=== PATIENT | male | born 1945 | race Caucasian/White ===

== ENCOUNTER 2016-11-07 14:58 | Emergency (ER) | payer OTHER ==
--- NOTE | 2016-11-07 19:35 | ED ORDER SUMMARY ---
..... Patient: DEEPAK CAMPA OrderSheet [facility] VisitID: [id number] [place] [address] 71y, M Registration Date/Time: 11/07/2016 ORDER SHEET Weight: 92.9 kg (stated) Allergies: None GENERAL ORDERS: UA-Culture if indicated Urgent (15:27 11/07/2016 PHutchinson DO) (Ack 15:28 LTapper) (17:13 MWinterer R.N.) Amylase Urgent (15:27 11/07/2016 PHutchinson DO) (15:28 DMaziarka R.N.) (Ack 15:28 LTapper) Lipase Urgent (15:11/07/2016 PHutchinson DO) (15:28 DMaziarka R.N.) (Ack 15:28 LTapper) Cardiac Panel Stat (15:11/07/2016 PHutchinson DO) (15:28 DMaziarka R.N.) (Ack 15:28 LTapper) PT with INR Urgent (15:27 11/07/2016 PHutchinson DO) (15:28 DMaziarka R.N.) (Ack 15:28 LTapper) BNP Urgent (15:11/07/2016 PHutchinson DO) (15:28 DMaziarka R.N.) (Ack 15:28 LTapper) Stool for C. Difficile Urgent (15:11/07/2016 PHutchinson DO) (Ack 15:28 LTapper) (Cancelled: Patient Off Unit, patient unable to provide sample 21:27 HSoule) NPO (15:27 11/07/2016 PHutchinson DO) (15:28 DMaziarka R.N.) Rapid Influenza Screen (Nasal Pharyngeal) (REDUCTION FURNACE OPERATOR HELPER swab) Urgent (15:11/07/2016 PHutchinson DO) (Ack 15:28 LTapper) (15:43 MWinterer R.N.) Ammonia Level Urgent (15:33 11/07/2016 PHutchinson DO) (15:43 MWinterer R.N.) US Abdomen Limited (No) (painless jaundice and nausea) Urgent (15:37 11/07/2016 [facility]) (Ack 15:52 LTapper) (18:11 MWinterer R.N.) EKG - ER Stat (15:53 11/07/2016 [facility]) (Ack 16:00 MWinterer R.N.) (17:08 MWinterer R.N.) Hepatitis Evaluation VII Urgent (16:26 11/07/2016 [facility]) (Ack 16:29 LTapper) (19:06 LTapper) CT Abd/Pel wo Cont (painless jaundice; elevated LFT - had US with dilated ducts; head of pancreas not clearly seen - ) Urgent (18:59 11/07/2016 [facility]) (Ack 19:07 LTapper) (19:17 Michael) Call (Place call to): (GI at [facility]) (19:00 11/07/2016 [facility]) (19:19 MWinterer R.N.) MEDICATION ORDERS: IV FLUIDS: IV NS : initial bolus 500 mL (1000 mL/hr), then 250 mL/hr for X2 (NOW) (15:27 11/07/2016 [facility]) (Ack 15:29 MWinterer R.N.) (15:38 MWinterer R.N.) Zofran IV 4 mg (NOW) (15:27 11/07/2016 [facility]) (Ack 15:29 MWinterer R.N.) (15:39 MWinterer R.N.) ORDER SHEET NOTES: [Electronically signed by Miriam Moreno (21:27 11/07/2016)] [Electronically signed by Cristobal Beauchamp DO (09:14 11/08/2016)] [Electronically locked/signed by Miriam Moreno (21:11/07/2016)]
--- NOTE | 2016-11-07 19:35 | ED CLINICAL REPORT ---
Clinical Report - Physicians/Mid Levels [facility] [address] [place] [address] 11/07/2016 15:00 Patient: DEEPAK LANIER [facility]#: [id number] Time Seen: 15:26. Arrived- By private vehicle. Historian- patient. HISTORY OF PRESENT ILLNESS Chief Complaint: NASAL CONGESTION, NAUSEA and WEAKNESS JAUNDICE. This started today and is still present. It was gradual in onset and has been waxing/waning. At its maximum, severity described as moderate. When seen in the E.D., severity described as moderate. Modifying factors- worsened by walking. Relieved by rest. The patient has had associated mild loss of appetite. No headache, visual disturbance or muscle aches. He has had fatigue. Denies sleep problem. No decreased urine output. Similar symptoms previously: None. Recent medical care: Not recently seen/assessed. REVIEW OF SYSTEMS No fever, sore throat, difficulty breathing, chest pain or abdominal pain. No vomiting, black stools, bloody stools, chills or difficulty with urination. No back pain, calf pain, headache or blackouts. The patient has had sinus drainage, nasal congestion and mild nausea. He has had a mild nonproductive cough. He has had mild loose stools. He has had mild difficulty with ambulation. It has been associated with weakness in both legs. He has had urinary problems (dark appearing urine). All systems otherwise negative, except as recorded above. PAST HISTORY Hypertension. Type II diabetes mellitus (recently). Hyperlipidemia. Constipation. Surgeries: Tonsillectomy. SOCIAL HISTORY Former smoker, end date 1981. Alcohol use. (no alcohol for 35 years). No drug use. ADDITIONAL NOTES The nursing notes have been reviewed. PHYSICAL EXAM Vital Signs: 11/07/2016 15:11 BP: 175/66. HR: 45. RR: 12. O2 saturation: 100%. Temp: 97.9 F. Pain level now: 0/10. Appearance: Alert. No acute distress. Eyes: Scleral icterus. No pale conjunctivae. ENT: Pharynx normal. No pharyngeal erythema or tonsillar exudate. The mucous membranes are not dry. Neck: Normal inspection. CVS: Bradycardia. Heart sounds normal. Pulses normal. Respiratory: No respiratory distress. Breath sounds normal. Abdomen: No visible injury. Soft and nontender. Back: Normal inspection. Skin: No cyanosis. Skin warm and dry. No petechiae. Normal skin turgor. Jaundiced. No pallor or diaphoresis. Extremities: Extremities exhibit normal ROM. No lower extremity edema. Neuro: Oriented X 3. No motor deficit. No sensory deficit. LABS, X-RAYS, AND EKG EKG: EKG time: (16:12). Narrow-complex bradycardia (ventricular rate 45). Sinus bradycardia. Normal P waves. Normal FROY. Normal QRS complex. Normal axis. Non-specific ST segment / T wave abnormalities. Non-specific T wave flattening in lead II, V5 and V6. Non-specific T wave inversion in lead III, V1, V2, V3 and V4. The study has been interpreted contemporaneously by me. The EKG appears to be a good tracing. Abdominal Sonogram: (Intrahepatic ductal dilation CBD dilated at 10 mm sludge within gallbladder No wall thickening Liver heterogenous Pancreas not well visualized). The study was independently viewed by me. The study was discussed with the radiologist (via tech). Laboratory Tests: UA-Culture if indicated: (JANUSZ: 11/07/2016 17:10) ( MsgRcvd 11/07/2016 17:32) Final results Test Result Flag Units (Reference) URINE COLOR DARK YELLOW URINE APPEARANCE CLEAR URINE GLUCOSE 1+ (NEGATIVE) URINE BILIRUBIN POSITIVE (NEGATIVE) URINE BILIRUBIN ICTOTEST POSITIVE (NEGATIVE) URINE KETONE NEGATIVE (NEGATIVE) URINE SPECIFIC GRAVITY >= 1.030 (1.010-1.030) URINE PH 5.5 (5.0-8.0) URINE PROTEIN TRACE (NEGATIVE) URINE UROBILINOGEN 1.0 EU/dL (0.2-1.0) URINE NITRITE POSITIVE (NEGATIVE) URINE BLOOD NEGATIVE (NEGATIVE) URINE LEUK ESTERASE NEGATIVE (NEGATIVE) URINE RBC NONE SEEN rbc/hpf (0-1) URINE WBC 0-1 wbc/hpf (0-1) URINE EPITHELIAL CELLS 0-1 EPI/hpf (0-5) URINE BACTERIA NONE SEEN (NONE SEEN) URINE COMMENT CULTURE INDICATED 1+ AMORPHOUS2+ MUCUSURINE CULTURES ARE SET-UP BASED ON THE FOLLOWING CRITERIA:POSITIVE NITRITEPOSITIVE LEUKOCYTE ESTERASEGREATER THAN 10 WHITE BLOOD CELLSMODERATE (2+) OR GREATER BACTERIA CBC w Diff: (JANUSZ: 11/07/2016 15:15) ( [facility] 11/07/2016 15:41) Final results Test Result Flag Units (Reference) WHITE BLOOD COUNT 7.1 K/uL (4.5-11.5) RED BLOOD COUNT 4.60 M/uL (4.50-5.90) HEMOGLOBIN 13.6 gm/dL (13.5-17.5) HEMATOCRIT 40.4 L % (41.0-53.0) MEAN CELL VOLUME 88 fL (80-100) MEAN CORPUSCULAR HGB 30 pg (26-34) MEAN CORPUSCULAR HGB CONC 34 g/dL (31-37) RED CELL DISTRIBUTION WIDTH 16.3 H % (11.6-14.8) PLATELET COUNT 357 K/uL (150-400) NEUTROPHIL % 69.0 % (50-75) LYMPH % 20.7 L % (25-40) MONO % 9.0 % (3-14) EOSINOPHIL % 1.2 % (0-4) BASOPHIL % 0.1 % (0-2) PT with INR: (JANUSZ: 11/07/2016 15:15) ( [facility] 11/07/2016 15:44) Final results Test Result Flag Units (Reference) INR 1.0 (0.8-1.2) Low Intensity Therapy: INR 1.5-2.0 PT range 18.5-23.1Mod.Intensity Therapy: INR 2.0-3.0 PT range 23.1-31.5High Intensity Therapy: INR 2.5-3.5 PT range 27.4-35.5High Intensity Therapy 2: INR 3.0-4.0 PT range 31.5-39.3 Ammonia Level: (JANUSZ: 11/07/2016 15:45) ( [facility] 11/07/2016 16:11) Final results Test Result Flag Units (Reference) AMMONIA 13 umol/L (11-32) BNP: (JANUSZ: 11/07/2016 15:15) ( MsgRcvd 11/07/2016 16:02) Final results Test Result Flag Units (Reference) B-TYPE NATRIURETIC PEPTIDE 210 H pg/ml (5-100) CHEM 13 PANEL: (JANUSZ: 11/07/2016 15:15) ( MsgRcvd 11/07/2016 16:00) Final results Test Result Flag Units (Reference) GLUCOSE 178 H mg/dL (70-110) BUN 19 H mg/dL (7-18) CREATININE 1.3 mg/dL (0.6-1.3) Estimated GFR 57.51 mL/min Estimated GFR- >60 mL/min Note: Persistent reduction over 3 months in eGFR<60 mL/min/1.73 m2 defines CKD. Patients with eGFR values>=60 mL/min/1.73 m2 may also have CKD if evidence ofpersistent proteinuria. Additional information may be foundat www.kidney.org. SODIUM 142 mmol/L (136-145) POTASSIUM 3.5 mmol/L (3.5-5.1) CHLORIDE 102 mmol/L (98-107) CARBON DIOXIDE 27 mmol/L (21-32) CALCIUM 9.2 mg/dL (8.5-10.1) TOTAL PROTEIN 7.7 g/dL (6.4-8.2) ALBUMIN 3.2 L g/dL (3.3-5.0) BILIRUBIN, TOTAL 7.3 H mg/dL (0.0-1.0) ALKALINE PHOSPHATASE 747 H U/L (46-116) AST (SGOT) 113 H U/L (15-37) ALT (SGPT) 153 H U/L (12-78) MAGNESIUM 2.1 mg/dL (1.8-2.4) LIPASE 167 U/L (73-393) AMYLASE 28 U/L (25-115) CPK 56 U/L (24-260) TROPONIN I 0.11 ng/mL (0.00-1.5) TROPONIN REFERENCE RANGE:<0.1 NEGATIVE0.1-1.5 INDETERMINANT>1.5 POSITIVE Culture, Urine: (JANUSZ: 11/07/2016 17:10) ( MsgRcvd 11/08/2016 08:19) IP Test Result Flag Units (Reference) CULTURE, URINE DATE: 11/08/16 NO GROWTH AT:: NO GROWTH AT 1 DAY PRELIM REPORT: PRELIMINARY REPORT #1 Rapid Influenza Screen: (JANUSZ: 11/07/2016 15:40) ( MsgRcvd 11/07/2016 16:01) Final results SPECIMEN DESCRIPTION: GLOBAL ENGINEERING MANAGER SWAB Test Result Flag Units (Reference) RAPID INFLUENZA SCREEN DATE: 11/07/16 INFLUENZA A: NEGATIVE SCREEN FOR INFLUENZA A INFLUENZA B: NEGATIVE SCREEN FOR INFLUENZA B RAPID INFLUENZA NEGATIVE FOR "A" "B". . Pulse Oximetry: 11/07/2016 15:11 O2 saturation: 100%. (FIO2 - room air). Interpretation: normal. PROGRESS AND PROCEDURES Course of Care: Normal Saline 1 liter IVPB given. Zofran 4 mg IVP given. Patient is stable. Physical exam findings are improved. Symptoms better. Mr Lanier presents with painless jaundice and moderate transaminase elevation with t.bili >7 and elevated alk phos. He has apparent gallbladder sludge, but no stones or wall thickening or other signs of cholecystitis (including neg Tiffanie's and no pain or tenderness). US with CBD dilated, but no CBD stone is seen. CBD on CT is normal. There are no signs of pancreatic head mass now. Hepatitis oanek is pending (send out test). Pt with chronic creatinine elevation - evaluated by nephroligy - trop I very slightly into the indeterminate range - likely due to mild renal disease. I have arranged close out pt GI follow up and he has a scheduled PCP f/u on Wednesday. He will return to the ED any time for new or worsening symptoms or any concerns. Discussed case with on-call health care provider, (Titi). Reviewed test results. Agreed upon treatment plan. Refers case to other health care provider. Discussed case with health care provider (Kathrine Patel [facility] GI - someone at the [facility] GI office will call pt with appointment time). Reviewed test results. Agreed upon treatment plan. Health care provider will see patient in office. Patient/family counseled. Old ED records reviewed. Disposition: Discharged. Condition: stable and improved. CLINICAL IMPRESSION Acute hepatitis (with painless jaundice). Abnormal liver function test: AST/SGOT, ALT/SGPT, alkaline phosphatase and total bilirubin. INSTRUCTIONS Drink plenty of fluids. Other diet: No acetaminophen / Tylenol containing medications. Warnings: Further evaluation is necessary in order to recheck abnormal lab, obtain test results, conduct further tests and assess the possibility of serious illness. It is very important to follow up with a physician. GENERAL WARNINGS: Return or contact your physician immediately if your condition worsens or changes unexpectedly, if not improving as expected, or if other problems arise. Your Current Medications: STOP TAKING THE FOLLOWING MEDICATIONS: Atenolol Oral : 50 mg. CONTINUE TAKING THE FOLLOWING MEDICATIONS: DULoxetine HCl Oral. Felodipine Oral : 10 mg. Fenofibrate Oral : 160 mg. Losartan Potassium Oral. MetFORMIN HCl Oral : 500 mg 2x a day. Simvastatin Oral : 20 mg. Prescription Medications: Zofran (orally disintegrating tablets) 4 mg: take 1 orally every 8 hours as needed for nausea and vomiting. Dispense ten (10). No refill. Substitution is permissible. Follow-up: Follow up with a aircraft dispatcher Someone at the GI clinic will call you with a time for an appointment - IF YOU DO NOT HEAR FROM THE CLINIC, PLEASE CALL [phone] Wednesday. Follow-up with: Sean Pink MD, [facility], , [address] [place] [address] , [place], [id number] Follow up Wednesday as scheduled. (Electronically signed by Cristobal Beauchamp DO 11/08/2016 9:14)
--- NOTE | 2016-11-07 19:35 | ED NURSING NOTES ---
Clinical Report - Nurses [place] [address] [place] [address] 11/07/2016 15:00 Patient: DEEPAK CAMPA TRIAGE Acuity: LEVEL 3. Chief Complaint: NAUSEA and DIARRHEA and (dark urine). Alert. No acute distress. --15:18 Marguerite Castañeda R.N. 15:11 11/07/16. BP: 175/66. HR: 45. RR: 12. O2 saturation: 100%. Temp: 97.9 F (oral). Pain level now: 0/10. --15:18 Marguerite Castañeda R.N. Weight: 92.9 kg stated. Height/Length: 68 inches Per Patient. BMI: 31.1. --15:13 Marguerite Castañeda R.N. Medications Atenolol Oral 50 mg. --15:16 Marguerite Castañeda R.N. Felodipine Oral 10 mg. Fenofibrate Oral 160 mg. Losartan Potassium Oral. MetFORMIN HCl Oral 500 mg, 2x a day. Simvastatin Oral 20 mg. --15:16 Marguerite Castañeda R.N. DULoxetine HCl Oral. --15:17 Marguerite Castañeda R.N. Medication/allergy information source: the patient. --15:18 Marguerite Castañeda R.N. Allergies None. --15:15 Marguerite Castañeda R.N. History Arrived by private vehicle. Historian: patient. Accompanied by spouse. Primary physician (Joesph). Onset. (1 months ago). SOCIAL HX: Smoker- current status unknown. No alcohol use or drug use. FALL RISK ASSESSMENT: Fall risk assessment completed. No fall risk identified. NUTRITIONAL RISK ASSESSMENT: The nutritional risk assessment revealed no deficiencies. FUNCTIONAL ASSESSMENT: Functional assessment: no impairments noted. LEARNING NEEDS ASSESSMENT: The learning needs assessment revealed no barriers. SKIN INTEGRITY ASSESSMENT: Skin integrity risk assessment completed. No skin integrity risk identified. --15:18 Marguerite Castañeda R.N. PROBLEMS: Constipation. Hypercholesterolemia. Diabetes Mellitus Type 2. Hypertension. --15:17 Marguerite Castañeda R.N. Assessment GENERAL / NEURO / PSYCH: Alert. Oriented X 4. Appears in no acute distress. [place] Coma Scale: 15- eyes open spontaneously (4); best verbal response- oriented x 4 (5); best motor response- obeys commands (6). Patient appears calm and cooperative. RESPIRATORY: Respirations not labored. CVS: Capillary refill less than 2 seconds. GI / : Abdomen soft and nontender. SKIN: Mucous membranes are pink. Skin is warm and dry. --15:18 Marguerite Castañeda R.N. Interventions ID band on patient. To treatment room. --15:18 Marguerite Castañeda R.N. PHYSICAL ASSESSMENT 15:19 11/07/16. Ambulatory to room. GENERAL / NEURO / PSYCH: Alert. Oriented X 4. Appears in no acute distress. HEENT: Mucous membranes are pink. RESPIRATORY: Respirations not labored. CVS: Capillary refill less than 2 seconds. GI / : Abdomen soft and nontender. SKIN: Skin is warm and dry. --15:19 Marguerite Castañeda R.N. NURSING PROGRESS NOTES 15:11/07/16. hospital monitor, pulse oximeter and NIBP monitor placed on patient; monitor alarms on. Patient gowned. Two patient identifiers checked. Call light placed in reach. Side rails up x 2. Bed placed in lowest position. Brakes of bed on. Patient ready for evaluation- chart flagged and ED physician notified. --15:21 Marguerite Castañeda R.N. 15:27 11/07/2016 Site #1 started via IV in the left wrist with an 18g angiocath; one attempt. Blood drawn: rainbow set. Labeled in the presence of the patient and sent to the lab. Saline lock flushed with 10 mL saline. --15:27 Valerie Díaz R.N. 15:38 11/07/2016 Started bag #1 1000 mL IV Fluids IV NS (Saline); at 999 mL/hr over 30 minute(s) via site #1 via IV pump. Allergies verified and confirmed 5 rights. IV patency established. IV site checked: no pain, redness, or swelling. IV flushed thoroughly pre- and post-medication administration. --15:38 Marguerite Castañeda R.N. 15:39 11/07/2016 Zofran (Ondansetron HCl) IVP 4 mg given over 1 minute(s) via site #1. Allergies verified and confirmed 5 rights. IV patency established. IV site checked: no pain, redness, or swelling. IV flushed thoroughly pre- and post-medication administration. IVP given by RN. --15:39 Marguerite Castañeda R.N. Checked patient name and birthdate: patient confirmed. Blood samples drawn with syringe and 23g butterfly by tech per protocol ; labeled in presence of the patient and sent to lab: regina camargo. --15:58 Donato Ruiz 16:15 11/07/2016 IV Fluids IV NS via IV site #1 Rate Changed: bag #1 decreased to 250 mL/hr via IV pump. IV patency established. IV site checked: no pain, redness, or swelling. IV flushed thoroughly. Confirmed 5 Rights. --16:20 Sri Marie R.N. EKG time: (16:12). EKG was performed by a tech and shown to the ED physician. --16:27 Larisa Manning 17:14 11/07/16. Checked patient name and birthdate: patient confirmed urine collected with return of brown-colored clear urine; sample sent to lab for urinalysis. Specimen labeled in the presence of the patient. --17:14 Marguerite Castañeda R.N. 17:24 11/07/16. BP: 134/63. HR: 48. RR: 15. O2 saturation: 95% on room air. Pain level now: 0/10. --17:25 Marguerite Castañeda R.N. 17:25 11/07/16. The patient reports no complaints, he is calm and resting quietly and he has had no adverse reaction. Overall patient status- he states feels the same. GI / : Denies abdominal pain or nausea. --17:25 Marguerite Castañeda R.N. EKG time: (16:12). EKG was performed by a tech and shown to the ED physician. --17:37 Larisa Manning 18:05 11/07/2016 IV Fluids IV NS Discontinued: bag #1 infused. Total amount infused: 1000 mL. IV patency established. IV site checked: no pain, redness, or swelling. IV flushed thoroughly. --18:10 Sri Marie R.N. 18:41 11/07/16. BP: 146/65. HR: 50. RR: 16. O2 saturation: 98% on room air. Pain level now: 0/10. --18:42 Marguerite Castañeda R.N. DISPOSITION / DISCHARGE 19:50 11/07/2016 Site #1 removed upon discharge. Catheter intact. Bandaid applied. --21:26 Miriam Moreno 19:59 11/07/16. Condition at departure: stable. --21:09 Miriam Moreno 19:59 11/07/16. BP: 126/75. HR: 53. RR: 15. O2 saturation: 99% on room air. Temp: 99.3 F (oral). Pain level now: 0/10. --21: Miriam Moreno 19:59 11/07/16. No learning barriers present. Discharge instructions provided and reviewed with the patient. Reviewed medication(s) side effects, precautions, dosing and course information. Prescription(s) given to the patient. Patient verbalized understanding. Written instructions provided in Luxembourgish. ( Follow up with GI on Wednesday. Contact information given. Patient has scheduled appointment with PCP on Wednesday and will follow up with him. Drink plenty of fluids. Return if symptoms worsen. Do not take Tylenol products.). The patient was discharged by the physician. He was discharged home and accompanied by spouse. He left the Emergency Department ambulatory and via private vehicle. Spouse driving. --21:26 Miriam Moreno 19:59 11/07/16. The goals identified in the patient's plan of care were met. FALL RISK ASSESSMENT: Fall risk assessment completed. No fall risk identified. --:26 Miriam Moreno. Locked/Released at 11/07/2016 21:27 by Miriam Moreno,
--- NOTE | 2016-11-07 19:35 | ED CLINICAL REPORT ---
Clinical Report - Physicians/Mid Levels [facility] [address] [place] [address] 11/07/2016 15:00 [id number] Time Seen: 15:26. Arrived- By private vehicle. Historian- patient. HISTORY OF PRESENT ILLNESS Chief Complaint: NASAL CONGESTION, NAUSEA and WEAKNESS JAUNDICE. This started today and is still present. It was gradual in onset and has been waxing/waning. At its maximum, severity described as moderate. When seen in the E.D., severity described as moderate. Modifying factors- worsened by walking. Relieved by rest. The patient has had associated mild loss of appetite. No headache, visual disturbance or muscle aches. He has had fatigue. Denies sleep problem. No decreased urine output. Similar symptoms previously: None. Recent medical care: Not recently seen/assessed. REVIEW OF SYSTEMS No fever, sore throat, difficulty breathing, chest pain or abdominal pain. No vomiting, black stools, bloody stools, chills or difficulty with urination. No back pain, calf pain, headache or blackouts. The patient has had sinus drainage, nasal congestion and mild nausea. He has had a mild nonproductive cough. He has had mild loose stools. He has had mild difficulty with ambulation. It has been associated with weakness in both legs. He has had urinary problems (dark appearing urine). All systems otherwise negative, except as recorded above. PAST HISTORY Hypertension. Type II diabetes mellitus (recently). Hyperlipidemia. Constipation. Surgeries: Tonsillectomy. SOCIAL HISTORY Former smoker, end date 1981. Alcohol use. (no alcohol for 35 years). No drug use. ADDITIONAL NOTES The nursing notes have been reviewed. PHYSICAL EXAM Vital Signs: 11/07/2016 15:11 BP: 175/66. HR: 45. RR: 12. O2 saturation: 100%. Temp: 97.9 F. Pain level now: 0/10. Appearance: Alert. No acute distress. Eyes: Scleral icterus. No pale conjunctivae. ENT: Pharynx normal. No pharyngeal erythema or tonsillar exudate. The mucous membranes are not dry. Neck: Normal inspection. CVS: Bradycardia. Heart sounds normal. Pulses normal. Respiratory: No respiratory distress. Breath sounds normal. Abdomen: No visible injury. Soft and nontender. Back: Normal inspection. Skin: No cyanosis. Skin warm and dry. No petechiae. Normal skin turgor. Jaundiced. No pallor or diaphoresis. Extremities: Extremities exhibit normal ROM. No lower extremity edema. Neuro: Oriented X 3. No motor deficit. No sensory deficit. LABS, X-RAYS, AND EKG EKG: EKG time: (16:12). Narrow-complex bradycardia (ventricular rate 45). Sinus bradycardia. Normal P waves. Normal FROY. Normal QRS complex. Normal axis. Non-specific ST segment / T wave abnormalities. Non-specific T wave flattening in lead II, V5 and V6. Non-specific T wave inversion in lead III, V1, V2, V3 and V4. The study has been interpreted contemporaneously by me. The EKG appears to be a good tracing. Abdominal Sonogram: (Intrahepatic ductal dilation CBD dilated at 10 mm sludge within gallbladder No wall thickening Liver heterogenous Pancreas not well visualized). The study was independently viewed by me. The study was discussed with the radiologist (via tech). Laboratory Tests: UA-Culture if indicated: (JANUSZ: 11/07/2016 17:10) ( MsgRcvd 11/07/2016 17:32) Final results Test Result Flag Units (Reference) URINE COLOR DARK YELLOW URINE APPEARANCE CLEAR URINE GLUCOSE 1+ (NEGATIVE) URINE BILIRUBIN POSITIVE (NEGATIVE) URINE BILIRUBIN ICTOTEST POSITIVE (NEGATIVE) URINE KETONE NEGATIVE (NEGATIVE) URINE SPECIFIC GRAVITY >= 1.030 (1.010-1.030) URINE PH 5.5 (5.0-8.0) URINE PROTEIN TRACE (NEGATIVE) URINE UROBILINOGEN 1.0 EU/dL (0.2-1.0) URINE NITRITE POSITIVE (NEGATIVE) URINE BLOOD NEGATIVE (NEGATIVE) URINE LEUK ESTERASE NEGATIVE (NEGATIVE) URINE RBC NONE SEEN rbc/hpf (0-1) URINE WBC 0-1 wbc/hpf (0-1) URINE EPITHELIAL CELLS 0-1 EPI/hpf (0-5) URINE BACTERIA NONE SEEN (NONE SEEN) URINE COMMENT CULTURE INDICATED 1+ AMORPHOUS2+ MUCUSURINE CULTURES ARE SET-UP BASED ON THE FOLLOWING CRITERIA:POSITIVE NITRITEPOSITIVE LEUKOCYTE ESTERASEGREATER THAN 10 WHITE BLOOD CELLSMODERATE (2+) OR GREATER BACTERIA CBC w Diff: (JANUSZ: 11/07/2016 15:15) ( [facility] 11/07/2016 15:41) Final results Test Result Flag Units (Reference) WHITE BLOOD COUNT 7.1 K/uL (4.5-11.5) RED BLOOD COUNT 4.60 M/uL (4.50-5.90) HEMOGLOBIN 13.6 gm/dL (13.5-17.5) HEMATOCRIT 40.4 L % (41.0-53.0) MEAN CELL VOLUME 88 fL (80-100) MEAN CORPUSCULAR HGB 30 pg (26-34) MEAN CORPUSCULAR HGB CONC 34 g/dL (31-37) RED CELL DISTRIBUTION WIDTH 16.3 H % (11.6-14.8) PLATELET COUNT 357 K/uL (150-400) NEUTROPHIL % 69.0 % (50-75) LYMPH % 20.7 L % (25-40) MONO % 9.0 % (3-14) EOSINOPHIL % 1.2 % (0-4) BASOPHIL % 0.1 % (0-2) PT with INR: (JANUSZ: 11/07/2016 15:15) ( [facility] 11/07/2016 15:44) Final results Test Result Flag Units (Reference) INR 1.0 (0.8-1.2) Low Intensity Therapy: INR 1.5-2.0 PT range 18.5-23.1Mod.Intensity Therapy: INR 2.0-3.0 PT range 23.1-31.5High Intensity Therapy: INR 2.5-3.5 PT range 27.4-35.5High Intensity Therapy 2: INR 3.0-4.0 PT range 31.5-39.3 Ammonia Level: (JANUSZ: 11/07/2016 15:45) ( [facility] 11/07/2016 16:11) Final results Test Result Flag Units (Reference) AMMONIA 13 umol/L (11-32) BNP: (JANUSZ: 11/07/2016 15:15) ( MsgRcvd 11/07/2016 16:02) Final results Test Result Flag Units (Reference) B-TYPE NATRIURETIC PEPTIDE 210 H pg/ml (5-100) CHEM 13 PANEL: (JANUSZ: 11/07/2016 15:15) ( MsgRcvd 11/07/2016 16:00) Final results Test Result Flag Units (Reference) GLUCOSE 178 H mg/dL (70-110) BUN 19 H mg/dL (7-18) CREATININE 1.3 mg/dL (0.6-1.3) Estimated GFR 57.51 mL/min Estimated GFR- >60 mL/min Note: Persistent reduction over 3 months in eGFR<60 mL/min/1.73 m2 defines CKD. Patients with eGFR values>=60 mL/min/1.73 m2 may also have CKD if evidence ofpersistent proteinuria. Additional information may be foundat www.kidney.org. SODIUM 142 mmol/L (136-145) POTASSIUM 3.5 mmol/L (3.5-5.1) CHLORIDE 102 mmol/L (98-107) CARBON DIOXIDE 27 mmol/L (21-32) CALCIUM 9.2 mg/dL (8.5-10.1) TOTAL PROTEIN 7.7 g/dL (6.4-8.2) ALBUMIN 3.2 L g/dL (3.3-5.0) BILIRUBIN, TOTAL 7.3 H mg/dL (0.0-1.0) ALKALINE PHOSPHATASE 747 H U/L (46-116) AST (SGOT) 113 H U/L (15-37) ALT (SGPT) 153 H U/L (12-78) MAGNESIUM 2.1 mg/dL (1.8-2.4) LIPASE 167 U/L (73-393) AMYLASE 28 U/L (25-115) CPK 56 U/L (24-260) TROPONIN I 0.11 ng/mL (0.00-1.5) TROPONIN REFERENCE RANGE:<0.1 NEGATIVE0.1-1.5 INDETERMINANT>1.5 POSITIVE Culture, Urine: (JANUSZ: 11/07/2016 17:10) ( MsgRcvd 11/08/2016 08:19) IP Test Result Flag Units (Reference) CULTURE, URINE DATE: 11/08/16 NO GROWTH AT:: NO GROWTH AT 1 DAY PRELIM REPORT: PRELIMINARY REPORT #1 Rapid Influenza Screen: (JANUSZ: 11/07/2016 15:40) ( MsgRcvd 11/07/2016 16:01) Final results SPECIMEN DESCRIPTION: TRAY DELIVERY AIDE SWAB Test Result Flag Units (Reference) RAPID INFLUENZA SCREEN DATE: 11/07/16 INFLUENZA A: NEGATIVE SCREEN FOR INFLUENZA A INFLUENZA B: NEGATIVE SCREEN FOR INFLUENZA B RAPID INFLUENZA NEGATIVE FOR "A" "B". . Pulse Oximetry: 11/07/2016 15:11 O2 saturation: 100%. (FIO2 - room air). Interpretation: normal. PROGRESS AND PROCEDURES Course of Care: Normal Saline 1 liter IVPB given. Zofran 4 mg IVP given. Patient is stable. Physical exam findings are improved. Symptoms better. Mr Lanier presents with painless jaundice and moderate transaminase elevation with t.bili >7 and elevated alk phos. He has apparent gallbladder sludge, but no stones or wall thickening or other signs of cholecystitis (including neg Tiffanie's and no pain or tenderness). US with CBD dilated, but no CBD stone is seen. CBD on CT is normal. There are no signs of pancreatic head mass now. Hepatitis oanek is pending (send out test). Pt with chronic creatinine elevation - evaluated by nephroligy - trop I very slightly into the indeterminate range - likely due to mild renal disease. I have arranged close out pt GI follow up and he has a scheduled PCP f/u on Wednesday. He will return to the ED any time for new or worsening symptoms or any concerns. Discussed case with on-call health care provider, (Titi). Reviewed test results. Agreed upon treatment plan. Refers case to other health care provider. Discussed case with health care provider (Kathrine Patel [facility] - someone at the [facility] office will call pt with appointment time). Reviewed test results. Agreed upon treatment plan. Health care provider will see patient in office. Patient/family counseled. Old ED records reviewed. Disposition: Discharged. Condition: stable and improved. CLINICAL IMPRESSION Acute hepatitis (with painless jaundice). Abnormal liver function test: AST/SGOT, ALT/SGPT, alkaline phosphatase and total bilirubin. INSTRUCTIONS Drink plenty of fluids. Other diet: No acetaminophen / Tylenol containing medications. Warnings: Further evaluation is necessary in order to recheck abnormal lab, obtain test results, conduct further tests and assess the possibility of serious illness. It is very important to follow up with a physician. GENERAL WARNINGS: Return or contact your physician immediately if your condition worsens or changes unexpectedly, if not improving as expected, or if other problems arise. Your Current Medications: STOP TAKING THE FOLLOWING MEDICATIONS: Atenolol Oral : 50 mg. CONTINUE TAKING THE FOLLOWING MEDICATIONS: DULoxetine HCl Oral. Felodipine Oral : 10 mg. Fenofibrate Oral : 160 mg. Losartan Potassium Oral. MetFORMIN HCl Oral : 500 mg 2x a day. Simvastatin Oral : 20 mg. Prescription Medications: Zofran (orally disintegrating tablets) 4 mg: take 1 orally every 8 hours as needed for nausea and vomiting. Dispense ten (10). No refill. Substitution is permissible. Follow-up: Follow up with a dry press operator helper Someone at the GI clinic will call you with a time for an appointment - IF YOU DO NOT HEAR FROM THE CLINIC, PLEASE CALL [phone] Wednesday. Follow-up with: Sean Pink MD, [facility], , [address] [place] [address] , [place], [address] Follow up Wednesday as scheduled. (Electronically signed by Cristobal Beauchamp DO 11/08/2016 9:14)
--- NOTE | 2016-11-07 19:35 | ED ORDER SUMMARY ---
..... Patient: DEEPAK CAMPA OrderSheet [facility] VisitID: [id number] [place] [address] 71y, M Registration Date/Time: 11/07/2016 ORDER SHEET Weight: 92.9 kg (stated) Allergies: None GENERAL ORDERS: UA-Culture if indicated Urgent (15:27 11/07/2016 PHutchinson DO) (Ack 15:28 LTapper) (17:13 MWinterer R.N.) Amylase Urgent (15:27 11/07/2016 PHutchinson DO) (15:28 DMaziarka R.N.) (Ack 15:28 LTapper) Lipase Urgent (15:11/07/2016 PHutchinson DO) (15:28 DMaziarka R.N.) (Ack 15:28 LTapper) Cardiac Panel Stat (15:11/07/2016 PHutchinson DO) (15:28 DMaziarka R.N.) (Ack 15:28 LTapper) PT with INR Urgent (15:27 11/07/2016 PHutchinson DO) (15:28 DMaziarka R.N.) (Ack 15:28 LTapper) BNP Urgent (15:11/07/2016 PHutchinson DO) (15:28 DMaziarka R.N.) (Ack 15:28 LTapper) Stool for C. Difficile Urgent (15:11/07/2016 PHutchinson DO) (Ack 15:28 LTapper) (Cancelled: Patient Off Unit, patient unable to provide sample 21:27 HSoule) NPO (15:27 11/07/2016 PHutchinson DO) (15:28 DMaziarka R.N.) Rapid Influenza Screen (Nasal Pharyngeal) (TRANSPLANTER ORCHID swab) Urgent (15:11/07/2016 PHutchinson DO) (Ack 15:28 LTapper) (15:43 MWinterer R.N.) Ammonia Level Urgent (15:33 11/07/2016 PHutchinson DO) (15:43 MWinterer R.N.) US Abdomen Limited (No) (painless jaundice and nausea) Urgent (15:37 11/07/2016 [facility]) (Ack 15:52 LTapper) (18:11 MWinterer R.N.) EKG - ER Stat (15:53 11/07/2016 [facility]) (Ack 16:00 MWinterer R.N.) (17:08 MWinterer R.N.) Hepatitis Evaluation VII Urgent (16:26 11/07/2016 [facility]) (Ack 16:29 LTapper) (19:06 LTapper) CT Abd/Pel wo Cont (painless jaundice; elevated LFT - had US with dilated ducts; head of pancreas not clearly seen - ) Urgent (18:59 11/07/2016 [facility]) (Ack 19:07 LTapper) (19:17 Michael) Call (Place call to): (GI at [facility]) (19:00 11/07/2016 [facility]) (19:19 MWinterer R.N.) MEDICATION ORDERS: IV FLUIDS: IV NS : initial bolus 500 mL (1000 mL/hr), then 250 mL/hr for X2 (NOW) (15:27 11/07/2016 [facility]) (Ack 15:29 MWinterer R.N.) (15:38 MWinterer R.N.) Zofran IV 4 mg (NOW) (15:27 11/07/2016 [facility]) (Ack 15:29 MWinterer R.N.) (15:39 MWinterer R.N.) ORDER SHEET NOTES: [Electronically signed by Miriam Moreno (21:27 11/07/2016)] [Electronically signed by Cristobal Beauchamp DO (09:14 11/08/2016)] [Electronically locked/signed by Miriam Moreno (21:11/07/2016)]
--- NOTE | 2016-11-07 19:53 | DIAGNOSTIC IMAGING REPORT ---
PROCEDURE: US ABDOMEN ULTRASOUND-LIMITED INDICATION: Abdominal pain with jaundice, initial encounter TECHNIQUE: Ross scale and color Doppler sonographic images of the abdomen were obtained. COMPARISON: None. FINDINGS: Liver measures 18 cm with diffuse increased echogenicity. There are several areas of decreased attenuation suggestive of focal sparing. The gallbladder sludge present. CBD enlarged, 10 mm, with sludge distally. Pancreas is unremarkable as visualized. IVC is patent. Normal hepatopetal flow. Normal right kidney measures 13.3 cm IMPRESSION: 1. Hepatic steatosis versus intrinsic liver disease with areas of focal sparing 2. Gallbladder sludge 3. Dilated common bile duct with sludge distally
--- NOTE | 2016-11-07 21:11 | DIAGNOSTIC IMAGING REPORT ---
PROCEDURE: CT ABDOMEN/PELVIS W/O CONTRAST INDICATION: Painless jaundice, initial encounter TECHNIQUE: Noncontrast axial images were obtained of the entire abdomen and pelvis with sagittal and coronal reformations. COMPARISON: Abdominal ultrasound 11/07/2016 FINDINGS: ABDOMEN: Minor right basilar atelectasis. Heart size is normal. Normal liver and gallbladder. CBD measures 6 mm with a increased radiodensity consistent with sludge seen on today's ultrasound. There is dilation of the common hepatic duct which measures 13 mm. Small diverticulum of the third portion of the duodenum. Normal pancreas, spleen, adrenal glands and kidneys. Moderate atherosclerosis of the aorta. Nonspecific bowel gas pattern. PELVIS: Normal appendix. Moderately enlarged prostate. No pelvic mass, inflammatory changes or free fluid. Old fractures of the right L1-L4 transverse processes. Mild degenerative changes of the spine. IMPRESSION: 1. Radiodensity in the normal size common bile duct (6 mm) consistent with sludge seen on today's ultrasound, with dilation of the common hepatic duct 2. Enlarged prostate 3. Results discussed with Dr. Beauchamp All CT scans at this facility use dose modulation, iterative reconstruction, and/or weight-based dosing when appropriate to reduce radiation dose to as low as reasonably achievable.
--- NOTE | 2016-11-08 09:15 | ED DISCHARGE INSTRUCTIONS ---
Patient: DEEPAK CAMPA General Instructions [facility] VisitID: [id number] [place] [address] 71y, M Registration Date/Time: 11/07/2016 Acute hepatitis (with painless jaundice). Abnormal liver function test: AST/SGOT, ALT/SGPT, alkaline phosphatase and total bilirubin. INSTRUCTIONS Drink plenty of fluids. Other diet: No acetaminophen / Tylenol containing medications. Warnings: Further evaluation is necessary in order to recheck abnormal lab, obtain test results, conduct further tests and assess the possibility of serious illness. It is very important to follow up with a physician. GENERAL WARNINGS: Return or contact your physician immediately if your condition worsens or changes unexpectedly, if not improving as expected, or if other problems arise. Your Current Medications: STOP TAKING THE FOLLOWING MEDICATIONS: Atenolol Oral : 50 mg. CONTINUE TAKING THE FOLLOWING MEDICATIONS: DULoxetine HCl Oral. Felodipine Oral : 10 mg. Fenofibrate Oral : 160 mg. Losartan Potassium Oral. MetFORMIN HCl Oral : 500 mg 2x a day. Simvastatin Oral : 20 mg. Prescription Medications: Zofran (orally disintegrating tablets) 4 mg: take 1 orally every 8 hours as needed for nausea and vomiting. Dispense ten (10). No refill. Substitution is permissible. Follow-up: Follow up with a wood floor layer Someone at the GI clinic will call you with a time for an appointment - IF YOU DO NOT HEAR FROM THE CLINIC, PLEASE CALL [phone] Wednesday. Follow-up with: Sean Pink MD, [facility], , [address] [facility], [place], [place], [address] Follow up Wednesday as scheduled. ADDITIONAL INFORMATION Hepatitis, Unknown Cause [Viral Or Other, Test Result Pending] Hepatitis is an inflammation of the liver. It can be caused by an infection (most often viral), exposure to toxins (alcohol is a common cause), and autoimmune disease. It can also be a side effect of certain medicines. Symptoms may include fever, nausea, vomiting and loss of appetite. There may also be chronic fatigue, weakness, dark urine, light colored stool, aching joints and yellow skin or eyes. Some types of hepatitis may cause no symptoms early in the disease. Home Care: You may get tired easily. Get lots of rest. Light activity is fine. Dont overexert yourself. A high-protein, high-carbohydrate, low-fat diet is best. Have small, frequent meals if nausea is present. Avoid dehydration. Drink at least 6-8 glasses of fluid per day. Avoid alcohol until further liver testing is done and you have discussed this with your doctor. If you are an alcoholic, hepatitis is a sign that you need to stop drinking for good. Talk to your doctor for help with this. Acetaminophen (Tylenol) and anti-inflammatory drugs such as ibuprofen (Motrin, Advil) and naproxen (Aleve, Naprosyn) can be toxic to the liver in high doses, with prolonged use or in the presence of existing liver damage. Persons with acute (recently diagnosed) hepatitis should not take these medicines unless approved by your doctor. Persons with chronic (long-standing) hepatitis and advanced liver disease should not take these medicines. Persons with only mild or no liver damage from chronic hepatitis may take acetaminophen in low doses (2 grams per 24 hours). Do not take anti-inflammatory medicines. Never take acetaminophen with alcohol since this increases the risk of liver damage. Until your tests are complete, we dont know if your condition is contagious. Until you get your test results, avoid exposing others to your body fluids, as follows: Wash your hands often, and after you use the bathroom. Parents caring for a baby with hepatitis should use disposable diapers. Wash hands after changing the baby. health services director workers should not work until cleared by their doctor. Do not have sex without a condom. Never share needles, syringes or tattoo equipment. Do not attempt to donate blood. Do not share razors or toothbrushes. If you need medical or dental care, inform the staff that you have hepatitis. Follow Up With Your Doctor Or This Facility Or As Directed To Get Your Test Results. If Your Test Shows You Have Infectious Hepatitis, More Information Will Be Given Then. Persons Living With You Or Exposed To You In Any Of The Ways Described Above Should Contact Their Physician Or The Public Health Department As Soon As They Can For Testing And Protective Immunization. An Immunization Can Be Given Up To Two Weeks After A Person Is Exposed (Hepatitis A And B Only; There Is No Vaccine For Hepatitis C). Get Prompt Medical Attention if any of the following occur: Frequent vomiting Weight loss from poor appetite Increase in abdominal pain or swelling Increasing drowsiness or confusion Weakness, dizziness or fainting New or increasing yellow color of skin or eyes Bleeding from the gums or nose, easy bruising Ondansetron Oral disintegrating tablet What is this medicine? ONDANSETRON (on ROSIE se ken) is used to treat nausea and vomiting caused by chemotherapy. It is also used to prevent or treat nausea and vomiting after surgery. How should I use this medicine? These tablets are made to dissolve in the mouth. Do not try to push the tablet through the foil backing. With dry hands, peel away the foil backing and gently remove the tablet. Place the tablet in the mouth and allow it to dissolve, then swallow. While you may take these tablets with water, it is not necessary to do so. Talk to your extension edger regarding the use of this medicine in children. Special care may be needed. What side effects may I notice from receiving this medicine? Side effects that you should report to your doctor or health critical care technician as soon as possible: allergic reactions like skin rash, itching or hives, swelling of the face, lips, or tongue breathing problems dizziness fast or irregular heartbeat feeling faint or lightheaded, falls fever and chills swelling of the hands and feet tightness in the chest Side effects that usually do not require medical attention (report to your doctor or health critical care technician if they continue or are bothersome): constipation or diarrhea headache What may interact with this medicine? Do not take this medicine with any of the following medications: -apomorphine -cisapride -dofetilide -dronedarone -pimozide -thioridazine -ziprasidone This medicine may also interact with the following medications: -carbamazepine -phenytoin -rifampicin -tramadol -other medicines that prolong the QT interval (cause an abnormal heart rhythm) What if I miss a dose? If you miss a dose, take it as soon as you can. If it is almost time for your next dose, take only that dose. Do not take double or extra doses. Where should I keep my medicine? Keep out of the reach of children. Store between 2 and 30 degrees C (36 and 86 degrees F). Throw away any unused medicine after the expiration date. What should I tell my health care provider before I take this medicine? They need to know if you have any of these conditions: heart disease history of irregular heartbeat liver disease low levels of magnesium or potassium in the blood an unusual or allergic reaction to ondansetron, granisetron, other medicines, foods, dyes, or preservatives or trying to get breast-feeding What should I watch for while using this medicine? Check with your doctor or health critical care technician as soon as you can if you have any sign of an allergic reaction. You have been given the following additional information: Hepatitis, Cause Unknown (Test Pending) Ondansetron Oral disintegrating tablet (Electronically signed by Cristobal Beauchamp DO 11/08/2016 9:14)
--- NOTE | 2016-11-08 09:15 | ED DISCHARGE INSTRUCTIONS ---
Patient: DEEPAK CAMPA General Instructions [facility] VisitID: [id number] [place] [address] 71y, M Registration Date/Time: 11/07/2016 Acute hepatitis (with painless jaundice). Abnormal liver function test: AST/SGOT, ALT/SGPT, alkaline phosphatase and total bilirubin. INSTRUCTIONS Drink plenty of fluids. Other diet: No acetaminophen / Tylenol containing medications. Warnings: Further evaluation is necessary in order to recheck abnormal lab, obtain test results, conduct further tests and assess the possibility of serious illness. It is very important to follow up with a physician. GENERAL WARNINGS: Return or contact your physician immediately if your condition worsens or changes unexpectedly, if not improving as expected, or if other problems arise. Your Current Medications: STOP TAKING THE FOLLOWING MEDICATIONS: Atenolol Oral : 50 mg. CONTINUE TAKING THE FOLLOWING MEDICATIONS: DULoxetine HCl Oral. Felodipine Oral : 10 mg. Fenofibrate Oral : 160 mg. Losartan Potassium Oral. MetFORMIN HCl Oral : 500 mg 2x a day. Simvastatin Oral : 20 mg. Prescription Medications: Zofran (orally disintegrating tablets) 4 mg: take 1 orally every 8 hours as needed for nausea and vomiting. Dispense ten (10). No refill. Substitution is permissible. Follow-up: Follow up with a branch rental manager Someone at the GI clinic will call you with a time for an appointment - IF YOU DO NOT HEAR FROM THE CLINIC, PLEASE CALL [phone] Wednesday. Follow-up with: Sean Pink MD, [facility], , [address], [place], [place], [address] Follow up Wednesday as scheduled. ADDITIONAL INFORMATION Hepatitis, Unknown Cause [Viral Or Other, Test Result Pending] Hepatitis is an inflammation of the liver. It can be caused by an infection (most often viral), exposure to toxins (alcohol is a common cause), and autoimmune disease. It can also be a side effect of certain medicines. Symptoms may include fever, nausea, vomiting and loss of appetite. There may also be chronic fatigue, weakness, dark urine, light colored stool, aching joints and yellow skin or eyes. Some types of hepatitis may cause no symptoms early in the disease. Home Care: You may get tired easily. Get lots of rest. Light activity is fine. Dont overexert yourself. A high-protein, high-carbohydrate, low-fat diet is best. Have small, frequent meals if nausea is present. Avoid dehydration. Drink at least 6-8 glasses of fluid per day. Avoid alcohol until further liver testing is done and you have discussed this with your doctor. If you are an alcoholic, hepatitis is a sign that you need to stop drinking for good. Talk to your doctor for help with this. Acetaminophen (Tylenol) and anti-inflammatory drugs such as ibuprofen (Motrin, Advil) and naproxen (Aleve, Naprosyn) can be toxic to the liver in high doses, with prolonged use or in the presence of existing liver damage. Persons with acute (recently diagnosed) hepatitis should not take these medicines unless approved by your doctor. Persons with chronic (long-standing) hepatitis and advanced liver disease should not take these medicines. Persons with only mild or no liver damage from chronic hepatitis may take acetaminophen in low doses (2 grams per 24 hours). Do not take anti-inflammatory medicines. Never take acetaminophen with alcohol since this increases the risk of liver damage. Until your tests are complete, we dont know if your condition is contagious. Until you get your test results, avoid exposing others to your body fluids, as follows: Wash your hands often, and after you use the bathroom. Parents caring for a baby with hepatitis should use disposable diapers. Wash hands after changing the baby. customer service representative workers should not work until cleared by their doctor. Do not have sex without a condom. Never share needles, syringes or tattoo equipment. Do not attempt to donate blood. Do not share razors or toothbrushes. If you need medical or dental care, inform the staff that you have hepatitis. Follow Up With Your Doctor Or This Facility Or As Directed To Get Your Test Results. If Your Test Shows You Have Infectious Hepatitis, More Information Will Be Given Then. Persons Living With You Or Exposed To You In Any Of The Ways Described Above Should Contact Their Physician Or The Public Health Department As Soon As They Can For Testing And Protective Immunization. An Immunization Can Be Given Up To Two Weeks After A Person Is Exposed (Hepatitis A And B Only; There Is No Vaccine For Hepatitis C). Get Prompt Medical Attention if any of the following occur: Frequent vomiting Weight loss from poor appetite Increase in abdominal pain or swelling Increasing drowsiness or confusion Weakness, dizziness or fainting New or increasing yellow color of skin or eyes Bleeding from the gums or nose, easy bruising Ondansetron Oral disintegrating tablet What is this medicine? ONDANSETRON (on ROSIE se ken) is used to treat nausea and vomiting caused by chemotherapy. It is also used to prevent or treat nausea and vomiting after surgery. How should I use this medicine? These tablets are made to dissolve in the mouth. Do not try to push the tablet through the foil backing. With dry hands, peel away the foil backing and gently remove the tablet. Place the tablet in the mouth and allow it to dissolve, then swallow. While you may take these tablets with water, it is not necessary to do so. Talk to your dietitian teaching regarding the use of this medicine in children. Special care may be needed. What side effects may I notice from receiving this medicine? Side effects that you should report to your doctor or health care professionals as soon as possible: allergic reactions like skin rash, itching or hives, swelling of the face, lips, or tongue breathing problems dizziness fast or irregular heartbeat feeling faint or lightheaded, falls fever and chills swelling of the hands and feet tightness in the chest Side effects that usually do not require medical attention (report to your doctor or health care professionals if they continue or are bothersome): constipation or diarrhea headache What may interact with this medicine? Do not take this medicine with any of the following medications: -apomorphine -cisapride -dofetilide -dronedarone -pimozide -thioridazine -ziprasidone This medicine may also interact with the following medications: -carbamazepine -phenytoin -rifampicin -tramadol -other medicines that prolong the QT interval (cause an abnormal heart rhythm) What if I miss a dose? If you miss a dose, take it as soon as you can. If it is almost time for your next dose, take only that dose. Do not take double or extra doses. Where should I keep my medicine? Keep out of the reach of children. Store between 2 and 30 degrees C (36 and 86 degrees F). Throw away any unused medicine after the expiration date. What should I tell my health care provider before I take this medicine? They need to know if you have any of these conditions: heart disease history of irregular heartbeat liver disease low levels of magnesium or potassium in the blood an unusual or allergic reaction to ondansetron, granisetron, other medicines, foods, dyes, or preservatives or trying to get breast-feeding What should I watch for while using this medicine? Check with your doctor or health care professionals as soon as you can if you have any sign of an allergic reaction. You have been given the following additional information: Hepatitis, Cause Unknown (Test Pending) Ondansetron Oral disintegrating tablet (Electronically signed by Cristobal Beauchamp DO 11/08/2016 9:14)
--- NOTE | 2016-11-08 09:15 | ED MAR SUMMARY ---
..... Medication Administration Record [facility] [address] [place] [place] [address] Patient: DEEPAK CAMPA Visit ID: [id number] 71y, M Weight: 92.9 kg Height/Length: 68 in BMI: 31.1 ALLERGIES: None Start 15:38 11/07/2016 Marguerite Castañeda ROrville, Stop 18:05 11/07/2016 Sri Marie R.N. Medication Administered: IV NS (SALINE), Dose: IV Fluids over 30 minute(s), Rate: 999 mL/hr, Dispensed: 1000 mL bag, Site: #1 left wrist. Medication Ordered: IV NS : initial bolus 500 mL (1000 mL/hr), then 250 mL/hr for X2 (NOW). Given 15:39 11/07/2016 Marguerite Castañeda ROrville Medication Administered: ZOFRAN [IVP] (ONDANSETRON HCL), Dose: 4 mg IVP over 1 minute(s), Site: #1 left wrist. Medication Ordered: Zofran IV 4 mg (NOW).
--- NOTE | 2016-11-08 09:15 | ED MED RECONCILIATION SUMMARY ---
Patient: DEEPAK CAMPA Medication Reconciliation Report [facility] VisitID: [id number] [address] [place] [address] 71y, M Registration Date/Time: 11/07/2016 Weight: 92.9 kg Height/Length: 68 in. BMI: 31.1 ALLERGIES: None The patient's Home Medications are listed below: STOP TAKING THE FOLLOWING MEDICATIONS: Atenolol Oral 50 mg CONTINUE TAKING THE FOLLOWING MEDICATIONS: DULoxetine HCl Oral Felodipine Oral 10 mg Fenofibrate Oral 160 mg Losartan Potassium Oral MetFORMIN HCl Oral 500 mg, 2x a day Simvastatin Oral 20 mg The source(s) of the original Home Medication information: patient The following Medications were given to the patient in the Emergency Department: IV NS IV Fluids bolus 0, then 999 mL/hr, administered: 11/07/2016 3:38:00 PM Zofran [IVP] IVP 4 mg, administered: 11/07/2016 3:39:00 PM The following Medications were prescribed to the patient: Zofran (orally disintegrating tablets) 4 mg: take 1 orally every 8 hours as needed for nausea and vomiting. Dispense ten (10). No refill. Substitution is permissible. -- Cristobal Beauchamp,
--- NOTE | 2016-11-08 09:15 | ED MED RECONCILIATION SUMMARY ---
Patient: DEEPAK CAMPA Medication Reconciliation Report [facility] VisitID: [id number] [address] [place] [address] 71y, M Registration Date/Time: 11/07/2016 Weight: 92.9 kg Height/Length: 68 in. BMI: 31.1 ALLERGIES: None The patient's Home Medications are listed below: STOP TAKING THE FOLLOWING MEDICATIONS: Atenolol Oral 50 mg CONTINUE TAKING THE FOLLOWING MEDICATIONS: DULoxetine HCl Oral Felodipine Oral 10 mg Fenofibrate Oral 160 mg Losartan Potassium Oral MetFORMIN HCl Oral 500 mg, 2x a day Simvastatin Oral 20 mg The source(s) of the original Home Medication information: patient The following Medications were given to the patient in the Emergency Department: IV NS IV Fluids bolus 0, then 999 mL/hr, administered: 11/07/2016 3:38:00 PM Zofran [IVP] IVP 4 mg, administered: 11/07/2016 3:39:00 PM The following Medications were prescribed to the patient: Zofran (orally disintegrating tablets) 4 mg: take 1 orally every 8 hours as needed for nausea and vomiting. Dispense ten (10). No refill. Substitution is permissible. -- Cristobal Beauchamp,
--- NOTE | 2016-11-08 09:15 | ED MAR SUMMARY ---
..... Medication Administration Record [facility] [address] [place] [address] Patient: DEEPAK CAMPA Visit ID: [id number] 71y, M Weight: 92.9 kg Height/Length: 68 in BMI: 31.1 ALLERGIES: None Start 15:38 11/07/2016 Marguerite Castañeda ROrville, Stop 18:05 11/07/2016 Sri Marie R.N. Medication Administered: IV NS (SALINE), Dose: IV Fluids over 30 minute(s), Rate: 999 mL/hr, Dispensed: 1000 mL bag, Site: #1 left wrist. Medication Ordered: IV NS : initial bolus 500 mL (1000 mL/hr), then 250 mL/hr for X2 (NOW). Given 15:39 11/07/2016 Marguerite Castañeda ROrville Medication Administered: ZOFRAN [IVP] (ONDANSETRON HCL), Dose: 4 mg IVP over 1 minute(s), Site: #1 left wrist. Medication Ordered: Zofran IV 4 mg (NOW).
== END 2016-11-07 19:59 | disposition home or self-care (01) ==
LOC: ED SRH 14:58
DX: B17.9 Acute viral hepatitis, unspecified (principal); R17 Unspecified jaundice; R94.5 Abnormal results of liver function studies; I10 Essential (primary) hypertension; E11.9 Type 2 diabetes mellitus without complications; Z79.84 Long term (current) use of oral hypoglycemic drugs; Z79.899 Other long term (current) drug therapy
CPT/HCPCS: 90004; 90070; 90073; 90075; 90077; 90078; 90100; 90469; 90616; 91320; 91400; 91588; 91672; 92235; 92530; 92610; 92720; 94060; 95059; 99777

== ENCOUNTER 2017-01-06 15:56 | Emergency (ER) | payer OTHER ==
--- NOTE | 2017-01-06 16:49 | ED NURSING NOTES ---
Clinical Report - [facility] [place] [address] 01/06/2017 15:58 Patient: DEEPAK CAMPA TRIAGE Triage time 16:05. Acuity: LEVEL 3. Chief Complaint: TENDER AREA. --16:12 Maci Zhu R.N. 16:05 01/06/17. BP: 133/74. HR: 73. RR: 18. O2 saturation: 96%. Temp: 97.7 F. Pain level now: 10/20. --16:12 Maci Zhu R.N. Weight: 83.9 kg stated. Height/Length: 69 inches Per Patient. BMI: 27.3. --16:05 Maci Zhu R.N. Medications Atenolol Oral 50 mg. DULoxetine HCl Oral. Felodipine Oral 10 mg. Fenofibrate Oral 160 mg. Losartan Potassium Oral. MetFORMIN HCl Oral 500 mg, 2x a day. Simvastatin Oral 20 mg. --16:07 Maci Zhu R.N. Allergies No Known Drug Allergy. --16:06 Maci Zhu R.N. History Arrived by private vehicle, and accompanied by family. Primary physician (Dr. Pires, [facility]). ( poss infection from surgical incision (3 weeks ago) with wound dehiscence and purulent drainage.). Reported as (upper mid abdomen). This started today. ( Pt. had bowel resection with whipple procedure 3 weeks ago. vertical abdominal wound has healed appropriately until this morning when the patient noticed a small area of dehiscence with purulent drainage.). SOCIAL HX: No alcohol use or drug use. No infectious disease exposure. ABUSE ASSESSMENT: No report of abuse. SELF HARM ASSESSMENT: A self harm assessment was performed. The patient answered "no" to the question "Do you have thoughts of harming or killing yourself?". --16:12 Maci Zhu R.N. PROBLEMS: Pancreatic cancer. Bile duct cancer. --16:12 Maci Zhu R.N. ADDITIONAL SURGERIES: Whipple procedure. --16:12 Maci Zhu R.N. The following entry was struck by Ava Chappell MD, 16:38 Reason - misspelled <<STRICKEN ENTRY-- Bowel ressection. --16:38 Ava Chappell MD --END STRIKE>>. Interventions ID band on patient. To treatment room. --16:12 Maci Zhu R.N. PHYSICAL ASSESSMENT GENERAL / NEURO / PSYCH: Alert. The patient does not appear to be in acute distress. Oriented X 4. HEENT: Pupils equal, round and reactive to light. RESPIRATORY: Respirations not labored. CVS: Pulses within normal limits. GI / : Abdominal distention. ( Healing vertical incision from abdominal surgery 3 weeks ago.). SKIN: Skin is warm, dry and non-tender. Skin lesion present. Slight wound dehiscence. Purulent drainage (bloody). Erythema present. --16:14 Maci Zhu R.N. NURSING PROGRESS NOTES Patient gowned. Reassurance given. Call light placed in reach. Bed placed in lowest position. Patient placed in chair. Patient waiting for evaluation. --16:14 Maci Zhu R.N. ( wound culture sent to the lab). --16:26 Maci Zhu R.N. 16:43 01/06/2017 Bactrim DS (Sulfamethoxazole-TMP DS) PO Tablets 1 tab given. --16:43 Maci Zhu R.N. DISPOSITION / DISCHARGE Departure time: 1700. Condition at departure: unchanged and stable. No learning barriers present. Discharge instructions provided and reviewed with the patient and spouse. Reviewed warnings (watch to make sure it does not go beyond marked edges of erythema.). Reviewed medication(s) side effects information. Prescription(s) given to the patient. Patient and spouse verbalized understanding. Written instructions provided in Frisian. The patient was discharged by the physician. He was discharged home and accompanied by spouse. He left the Emergency Department ambulatory and via private vehicle. Spouse driving. --17:00 Maci Zhu R.N. 16:59 01/06/17. BP: 133/74. HR: 73. RR: 18. O2 saturation: 96%. Temp: 97.7 F. Pain level now: 10/20. --17:00 Maci Zhu R.N. Locked/Released at 01/06/2017 17:01 by Maci Zhu R.N.
--- NOTE | 2017-01-06 16:49 | ED CLINICAL REPORT ---
Clinical Report - Physicians/Mid Levels [facility] [address] [place] [address] 01/06/2017 15:58 [facility] CAM[id number] Time Seen: 16:07. Arrived- By private vehicle. Historian- patient. HISTORY OF PRESENT ILLNESS Chief Complaint: (wound infection). This started yesterday and is still present. Not itchy or burning. It is described as painful. It has been located on the abdomen. A cause has been identified (Pt had a Whipple procedure 3 weeks ago, and has been steadily improving. Pt states he does not have any deeper abdominal sx. He has noticed redness, mild wound dehiscence, and mild drainage from the incision.). Similar symptoms previously: None. Recent medical care: The patient was seen recently by a health care provider. ( Pt also has a follow-up appt in about 4 weeks.). REVIEW OF SYSTEMS No fever, chills, sore throat, cough or difficulty breathing. No hoarseness, enlarged lymph nodes, headache, eye irritation or chest pain. No nausea, diarrhea, difficulty with urination, joint pain or vomiting. The patient has had abdominal pain. All systems otherwise negative, except as recorded above. PAST HISTORY Problems: Pancreatic cancer. Bile duct cancer. Hepatitis. Hyperlipidemia. Constipation. Diabetes Mellitus Type 2. Hypercholesterolemia. Hypertension. Additional Surgeries: Bowel resection. Tonsillectomy. Whipple procedure. Medications: Atenolol Oral 50 mg. DULoxetine HCl Oral. Felodipine Oral 10 mg. Fenofibrate Oral 160 mg. Losartan Potassium Oral. MetFORMIN HCl Oral 500 mg, 2x a day. Simvastatin Oral 20 mg. Allergies: No Known Drug Allergy. SOCIAL HISTORY Never smoker. No alcohol use or drug use. ADDITIONAL NOTES The nursing notes have been reviewed. PHYSICAL EXAM Vital Signs: 01/06/2017 16:05 BP: 133/74. HR: 73. RR: 18. O2 saturation: 96%. Temp: 97.7 F. Pain level now: 10. Have been reviewed. Appearance: Alert. Oriented X3. No acute distress. Eyes: Conjunctivae and eyelids normal. ENT: Nose normal. Neck: Neck supple. CVS: Normal heart rate and rhythm. Heart sounds normal. Respiratory: No respiratory distress. Breath sounds normal. Abdomen: Tenderness (mild tenderness adjacent to surgical wound). Skin: Skin warm. Medium area of cellulitis with tenderness and erythema to the abdomen (Pt has a 1 cm area of wound dehiscence and mild drainage. No abscess cavity palpable.). Extremities: Normal external inspection. Extremities nontender. Neuro: Oriented X 3. No motor deficit. No sensory deficit. LABS, X-RAYS, AND EKG Pulse Oximetry: 01/06/2017 16:05 O2 saturation: 96%. (FIO2 - room air). Interpretation: normal. PROGRESS AND PROCEDURES Course of Care: Pt was given a dose of Bactrim in the ED. Pt was overall well-appearing, and had no evidence of a problem more serious than a superficial wound infection. We did discuss the usual indications for return. Patient and spouse counseled in person regarding the patient's stable condition, diagnosis and need for follow-up. Concerns were addressed. Old medical records reviewed. Disposition: Discharged. Condition: stable. CLINICAL IMPRESSION Post-operative complication from gastrointestinal surgery- cellulitis and partial wound dehiscence. INSTRUCTIONS Warnings: GENERAL WARNINGS: Return or contact your physician immediately if your condition worsens or changes unexpectedly, if not improving as expected, or if other problems arise. Your Current Medications: CONTINUE TAKING THE FOLLOWING MEDICATIONS: Atenolol Oral : 50 mg. DULoxetine HCl Oral. Felodipine Oral : 10 mg. Fenofibrate Oral : 160 mg. Losartan Potassium Oral. MetFORMIN HCl Oral : 500 mg 2x a day. Simvastatin Oral : 20 mg. Prescription Medications: Bactrim DS 800 mg / 160 mg: take 1 tablet orally every 12 hours for 7 days. No refill. Substitution is permissible. Follow-up: Follow up with your doctor in seven days if not better. Understanding of the discharge instructions verbalized by patient and family. (Electronically signed by Ava Chappell MD 01/14/2017 9:10)
--- NOTE | 2017-01-06 16:50 | ED ORDER SUMMARY ---
..... Patient: DEEPAK CAMPA OrderSheet [facility] VisitID: [id number] [place] [address] 71y, M Registration Date/Time: 01/06/2017 ORDER SHEET Weight: 83.9 kg (stated) Allergies: No Known Drug Allergy GENERAL ORDERS: Culture, Wound Surface (Abdomen) (swab) Urgent (16:52 01/06/2017 Niurka BROOKS) (Ack 16:53 LNations ER Tech1) MEDICATION ORDERS: Bactrim DS PO (Tablet 800-160 mg) 1 tab (NOW) (16:37 01/06/2017 Niurka BROOKS) (Ack 16:39 SStone R.N.) (16:43 SStone R.N.) IV FLUIDS: ORDER SHEET NOTES: [Electronically signed by Maci Zhu R.N. (17:01 01/06/2017)] [Electronically signed by Ava Chappell MD (09:10 01/14/2017)] [Electronically locked/signed by Maci Zhu R.N. (17:01 01/06/2017)]
--- NOTE | 2017-01-06 16:50 | ED ORDER SUMMARY ---
..... Patient: DEEPAK CAMPA OrderSheet [facility] VisitID: [id number] [place] [address] 71y, M Registration Date/Time: 01/06/2017 ORDER SHEET Weight: 83.9 kg (stated) Allergies: No Known Drug Allergy GENERAL ORDERS: Culture, Wound Surface (Abdomen) (swab) Urgent (16:52 01/06/2017 Niurka BROOKS) (Ack 16:53 LNations ER Tech1) MEDICATION ORDERS: Bactrim DS PO (Tablet 800-160 mg) 1 tab (NOW) (16:37 01/06/2017 Niurka BROOKS) (Ack 16:39 SStone R.N.) (16:43 SStone R.N.) IV FLUIDS: ORDER SHEET NOTES: [Electronically signed by Maci Zhu R.N. (17:01 01/06/2017)] [Electronically signed by Ava Chappell MD (09:10 01/14/2017)] [Electronically locked/signed by Maci Zhu R.N. (17:01 01/06/2017)]
--- NOTE | 2017-01-14 09:10 | ED MAR SUMMARY ---
..... Medication Administration Record [facility] [address] [place] [address] Patient: DEEPAK CAMPA Visit ID: [id number] 71y, M Weight: 83.9 kg Height/Length: 69 in BMI: 27.3 ALLERGIES: No Known Drug Allergy Given 16:43 01/06/2017 Maci Zhu R.N. Medication Administered: BACTRIM DS [PO] (SULFAMETHOXAZOLE-TMP DS), Dose: 1 tab Tablets PO. Medication Ordered: Bactrim DS PO (Tablet 800-160 mg) 1 tab (NOW).
--- NOTE | 2017-01-14 09:10 | ED DISCHARGE INSTRUCTIONS ---
Patient: DEEPAK CAMPA General Instructions [facility] VisitID: [id number] [place] [address] 71y, M Registration Date/Time: 01/06/2017 Post-operative complication from gastrointestinal surgery- cellulitis and partial wound dehiscence. INSTRUCTIONS Warnings: GENERAL WARNINGS: Return or contact your physician immediately if your condition worsens or changes unexpectedly, if not improving as expected, or if other problems arise. Your Current Medications: CONTINUE TAKING THE FOLLOWING MEDICATIONS: Atenolol Oral : 50 mg. DULoxetine HCl Oral. Felodipine Oral : 10 mg. Fenofibrate Oral : 160 mg. Losartan Potassium Oral. MetFORMIN HCl Oral : 500 mg 2x a day. Simvastatin Oral : 20 mg. Prescription Medications: Bactrim DS 800 mg / 160 mg: take 1 tablet orally every 12 hours for 7 days. No refill. Substitution is permissible. Follow-up: Follow up with your doctor in seven days if not better. Understanding of the discharge instructions verbalized by patient and family. (Electronically signed by Ava Chappell MD 01/14/2017 9:10)
--- NOTE | 2017-01-14 09:10 | ED MAR SUMMARY ---
..... Medication Administration Record [facility] [address] [place] [address] Patient: DEEPAK CAMPA Visit ID: [id number] 71y, M Weight: 83.9 kg Height/Length: 69 in BMI: 27.3 ALLERGIES: No Known Drug Allergy Given 16:43 01/06/2017 Maci Zhu R.N. Medication Administered: BACTRIM DS [PO] (SULFAMETHOXAZOLE-TMP DS), Dose: 1 tab Tablets PO. Medication Ordered: Bactrim DS PO (Tablet 800-160 mg) 1 tab (NOW).
--- NOTE | 2017-01-14 09:10 | ED MED RECONCILIATION SUMMARY ---
Patient: DEEPAK CAMPA Medication Reconciliation Report [facility] VisitID: [id number] [place] [address] 71y, M Registration Date/Time: 01/06/2017 Weight: 83.9 kg Height/Length: 69 in. BMI: 27.3 ALLERGIES: No Known Drug Allergy The patient's Home Medications are listed below: CONTINUE TAKING THE FOLLOWING MEDICATIONS: Atenolol Oral 50 mg DULoxetine HCl Oral Felodipine Oral 10 mg Fenofibrate Oral 160 mg Losartan Potassium Oral MetFORMIN HCl Oral 500 mg, 2x a day Simvastatin Oral 20 mg The source(s) of the original Home Medication information: Not obtained. The following Medications were given to the patient in the Emergency Department: Bactrim DS [PO] PO 1 tab, administered: 01/06/2017 4:43:00 PM The following Medications were prescribed to the patient: Bactrim DS 800 mg / 160 mg: take 1 tablet orally every 12 hours for 7 days. No refill. Substitution is permissible. -- Ava Chappell MD
--- NOTE | 2017-01-14 09:10 | ED MED RECONCILIATION SUMMARY ---
Patient: DEEPAK CAMPA Medication Reconciliation Report [facility] VisitID: [id number] [place] [address] 71y, M Registration Date/Time: 01/06/2017 Weight: 83.9 kg Height/Length: 69 in. BMI: 27.3 ALLERGIES: No Known Drug Allergy The patient's Home Medications are listed below: CONTINUE TAKING THE FOLLOWING MEDICATIONS: Atenolol Oral 50 mg DULoxetine HCl Oral Felodipine Oral 10 mg Fenofibrate Oral 160 mg Losartan Potassium Oral MetFORMIN HCl Oral 500 mg, 2x a day Simvastatin Oral 20 mg The source(s) of the original Home Medication information: Not obtained. The following Medications were given to the patient in the Emergency Department: Bactrim DS [PO] PO 1 tab, administered: 01/06/2017 4:43:00 PM The following Medications were prescribed to the patient: Bactrim DS 800 mg / 160 mg: take 1 tablet orally every 12 hours for 7 days. No refill. Substitution is permissible. -- Ava Chappell MD
--- NOTE | 2017-01-14 09:10 | ED DISCHARGE INSTRUCTIONS ---
Patient: DEEPAK CAMPA General Instructions [facility] VisitID: [id number] [place] [address] 71y, M Registration Date/Time: 01/06/2017 Post-operative complication from gastrointestinal surgery- cellulitis and partial wound dehiscence. INSTRUCTIONS Warnings: GENERAL WARNINGS: Return or contact your physician immediately if your condition worsens or changes unexpectedly, if not improving as expected, or if other problems arise. Your Current Medications: CONTINUE TAKING THE FOLLOWING MEDICATIONS: Atenolol Oral : 50 mg. DULoxetine HCl Oral. Felodipine Oral : 10 mg. Fenofibrate Oral : 160 mg. Losartan Potassium Oral. MetFORMIN HCl Oral : 500 mg 2x a day. Simvastatin Oral : 20 mg. Prescription Medications: Bactrim DS 800 mg / 160 mg: take 1 tablet orally every 12 hours for 7 days. No refill. Substitution is permissible. Follow-up: Follow up with your doctor in seven days if not better. Understanding of the discharge instructions verbalized by patient and family. (Electronically signed by Ava Chappell MD 01/14/2017 9:10)
== END 2017-01-06 18:07 | disposition home or self-care (01) ==
LOC: ED SRH 15:56
DX: T81.32XA Disruption of internal operation (surgical) wound, not elsewhere classified, initial encounter (principal); L03.311 Cellulitis of abdominal wall; Y83.8 Other surgical procedures as the cause of abnormal reaction of the patient, or of later complication, without mention of misadventure at the time of the procedure; I10 Essential (primary) hypertension; E11.9 Type 2 diabetes mellitus without complications; Z79.84 Long term (current) use of oral hypoglycemic drugs; Z79.899 Other long term (current) drug therapy
CPT/HCPCS: 90070; 90131; 90309

== ENCOUNTER 2017-04-26 09:19 | Outpatient (CLI) | payer OTHER | END 2017-04-26 23:00 | LOC: LAB SRH 09:19 | DX: C22.1 Intrahepatic bile duct carcinoma (principal) | CPT/HCPCS: 90074; 90100; 95059 ==